=== PATIENT | female | born 1995 | race Caucasian/White ===

== ENCOUNTER 2021-01-06 19:47 | Observation (INO) | payer BC ==
[~2021-01-06] VITALS: Ht 162.6 cm; Wt 91.2 kg
[2021-01-06 20:39] LABS: BASO # 0.1 K/mm3 (0.0-0.2); BASO % 0.5 % (0.0-2.0); EOS # 0.1 K/mm3 (0.0-0.7); EOS % 0.9 % (0-4.0); GRAN # 7.6 K/mm3 (1.4-6.5); HEMOGLOBIN 12.4 g/dl (12.5-16.0); LYMPH % 31.4 % (20.0-51.0); MEAN CELL VOLUME 86 fl (80.0-100.0); MEAN CORPUSCULAR HEMOGLOBIN 30 pg (27.0-31.0); MEAN CORPUSCULAR HGB CONC 35 g/dl (33.0-37.0); MEAN PLATELET VOLUME 9.1 fl (7.4-10.4); MONO # 0.9 K/mm3 (0.1-0.6); MONO % 6.8 % (1.7-9.3); PLATELET COUNT 377 K/mm3 (130-400); RED BLOOD COUNT 4.17 M/mm3 (4.10-5.30); REDCELL DISTRIBUTION WIDTH-CV 12.5 % (11.5-14.5)
[2021-01-06 20:52] LABS: HEMATOCRIT 35.7 % (37.0-47.0)
[2021-01-06 20:58] LABS: ALBUMIN 3.8 gm/dL (3.5-5.0); BILIRUBIN,TOTAL 0.2 mg/dL (0.2-1.2); CALCIUM 10.1 mg/dL (8.4-10.2); CREATININE, serum 0.86 mg/dL (0.57-1.11); POTASSIUM 3.6 mmol/L (3.5-4.5); TOTAL PROTEIN 7.3 gm/dL (6.2-8.1)
--- NOTE | 2021-01-06 23:50 | NUR ---
PT ARRIVES FROM ED PER W/C. IS ALERT AND ORIENTED X4. HAS IV TO LEFT HAND, FLUIDS INFUSING WITHOUT PROBLEM. RATES PAIN 4/10, MILD NAUSEA. ORIENTED TO ROOM AND BED CONTROLS. DENIES NEED FOR PAIN MEDS AT THIS TIME.
[2021-01-06] MEDS ORDERED: TRI ESTARYLLA PO (23:57)
[2021-01-06] MEDS ORDERED: EFFEXOR XR75 MG/CAP PO (23:57)
[2021-01-07] VITALS (15 sets, daily range): BP systolic 99–127; BP diastolic 52–70; PULSE 16–102; TEMP 97.9–98.7
--- NOTE | 2021-01-07 02:09 | NUR ---
PT AWAKE, RATES PAIN 6/10. MEDICATED WITH MORPHINE 2MG IVP AND ZOFRAN 4MG IVP FOR MILD NAUSEA.
--- NOTE | 2021-01-07 05:00 | NUR ---
PT REPORTS PAIN 6/10, MEDICATED WITH MORPHINE 2MG IVP AT THIS TIME.
[2021-01-07 07:14] LABS: BASO % 0.4 % (0.0-2.0); EOS # 0.1 K/mm3 (0.0-0.7); EOS % 0.7 % (0-4.0); GRAN # 6.5 K/mm3 (1.4-6.5); GRAN % 60.7 % (42.2-75.2); HEMOGLOBIN 11.5 g/dl (12.5-16.0); LYMPH # 3.3 K/mm3 (1.2-3.4); MEAN CELL VOLUME 88 fl (80.0-100.0); MEAN CORPUSCULAR HEMOGLOBIN 30 pg (27.0-31.0); MEAN CORPUSCULAR HGB CONC 34 g/dl (33.0-37.0); MEAN PLATELET VOLUME 9.4 fl (7.4-10.4); MONO # 0.8 K/mm3 (0.1-0.6); PLATELET COUNT 314 K/mm3 (130-400); RED BLOOD COUNT 3.88 M/mm3 (4.10-5.30); REDCELL DISTRIBUTION WIDTH-CV 12.7 % (11.5-14.5)
[2021-01-07 07:20] LABS: HEMATOCRIT 34.1 % (37.0-47.0)
[2021-01-07 07:33] LABS: COLLECTION METHOD CLEAN CATCH
--- NOTE | 2021-01-07 08:00 | NUR ---
Patient in bed resting. Alert and oriented x 3. Assessment complete. Patient denies pain at this time. Fluids infusing per orders at this time. Denies further needs at this time.
[2021-01-07 08:03] LABS: MUCOUS Present /lpf; PH 5 (5-8); SQUAMOUS EPITHELIAL 0-2 /hpf; URINE APPEARANCE Clear; URINE BACTERIA None Seen /hpf; URINE BILIRUBIN Negative (NEGATIVE); URINE BLOOD Negative (NEGATIVE); URINE COLOR Straw; URINE GLUCOSE Negative (NEGATIVE); URINE KETONE Negative (NEGATIVE); URINE LEUKOCYTE ESTERASE Negative (NEGATIVE); URINE NITRATE Negative (NEGATIVE); URINE PROTEIN(semi-quant) Negative (NEGATIVE); URINE RBC 0-2 /hpf; URINE UROBILINOGEN Negative (NEGATIVE)
--- NOTE | 2021-01-07 09:15 | NUR ---
Contacted Dr. Kelly, for additional pain medications. Tylenol given for pain / to abdomen. Denies additional needs at this time.
--- NOTE | 2021-01-07 10:30 | NUR ---
Patient complains of nausea, zofran given per orders.
--- NOTE | 2021-01-07 11:05 | NUR ---
Left VM for Dr. Kelly, patient continues complaining of pain. States tylenol did not help
--- NOTE | 2021-01-07 11:22 | NUR ---
Medical Office Representative visited with patient while family was in room. Nothing else needed at this time.
--- NOTE | 2021-01-07 14:09 | NUR ---
Patient called out, states she continues having abdominal pain. Asleep upon entering room. Kpad provided to patient. Denies needs at this time.
--- NOTE | 2021-01-07 15:34 | NUR ---
Plan is to return home with grant Slava . SW met with patient in room about care. Patient shares that her mother is an alternative [phone] Stewart and she obtains medicaitons from [facility] without concerns. Patient concern that she can not eat and is still in pain. Educated on supports with case management. WIll follow.
--- NOTE | 2021-01-07 16:32 | NUR ---
Patient to OR by bed.
--- NOTE | 2021-01-07 19:04 | NUR ---
Patient arrived to room 329 post op at approximately 1805. Doing well post op, VSS and fluids infusing per orders. Lap sites x 3 with edges well approximated. Patient denies pain at this time. Family at bedside. Denies further needs at this time. Will report off to night shift supervisor.
--- NOTE | 2021-01-07 20:15 | NUR ---
PT IN BED. REPORTS GETTING UP AND VOIDING WITHOUT PROBLEM. FIANCE AT BEDSIDE. PT HAS 3 LAP SITES TO ABD WITH BANDAIDS COVERING. REPORTS PAIN 4/10 TO ABD, DENIES NAUSEA. REPORTS EATING MAC/CHEESE FOR DINNER WITHOUT PROBLEM. AMBULATES IN HALLWAY WITH FIANCE AT THIS TIME.
--- NOTE | 2021-01-07 21:46 | NUR ---
MEDICATED WITH ES TYLENOL 1000MG PO FOR ABD DISCOMFORT 07/09.
[2021-01-08 00:58] VITALS: BP 108/68; PULSE 84; TEMP 98.4
[2021-01-08 04:24] VITALS: BP 106/57; PULSE 75; TEMP 97.9
--- NOTE | 2021-01-08 04:50 | NUR ---
PT MEDICATED WITH ES TYLENOL 1000MG PO FOR ABD PAIN 06/08.
--- NOTE | 2021-01-08 07:00 | NUR ---
Report received from COOKIE Rae. Pt. resting in bed and denies needs at this time. Call light and belongings in reach.
[2021-01-08 07:49] VITALS: BP 103/69; PULSE 72; TEMP 98.3
--- NOTE | 2021-01-08 08:50 | NUR ---
Pt. progressing w/ plan of care. Assessment complete and AM meds administered. Pt. inquiring if she is OK to return to work on Saturday 01/13. Pt. reports she is scheduled to work Saturday/Saturday/Saturday. Dr. Kelly called on the telephone. Dr. Kelly reports she is cleared to return to work on Saturday, but if she feels not well enough to return to work she can call his office and get a work note. Plan for discharge this AM, this RN working on pt.'s paperwork at this time.
--- NOTE | 2021-01-08 09:45 | NUR ---
Pt. discharged home. All paperwork provided to patient. Dr. Kelly agreeable w/ pt. alternating tylenol and ibuprofen when she gets home. Pt. agreeable w/ returning to work on Saturday and if she needs to contact Dr. Kelly' office she will. Pt. left floor via foot w/ VANESSA Carrizales.
== END 2021-01-08 09:45 | disposition home or self-care (01) ==
LOC: COL.ER 19:47 → SURG 22:27
PROVIDERS: Student in an Organized Health Care Education/Training Program; ADMIT Surgery
DX: K35.80 Unspecified acute appendicitis (principal)
CPT/HCPCS: G0378; J0690; J1100; J1885; J2270; J2405; J2543; J2704; J3010; J7030; Q9967

== ENCOUNTER 2021-07-01 20:25 | Emergency (ER) | payer OTHER ==
[~2021-07-01] VITALS: Ht 162.6 cm; Wt 90.9 kg
[~2021-07-01 20:25] MED LIST: EFFEXOR XR75 MG/CAP PO; TRI ESTARYLLA PO
[2021-07-01 20:34] VITALS: TEMP 98.6
[2021-07-01 20:51] LABS: COLLECTION METHOD CLEAN CATCH
[2021-07-01 20:57] LABS: BASO # 0.1 K/mm3 (0.0-0.2); BASO % 0.3 % (0.0-2.0); EOS # 0.1 K/mm3 (0.0-0.7); EOS % 0.4 % (0.0-4.0); GRAN # 12.1 K/mm3 (1.4-6.5); GRAN % 74.3 % (42.2-75.2); HEMATOCRIT 40.1 % (37.0-47.0); HEMOGLOBIN 14.3 g/dl (12.5-16.0); LYMPH # 3.2 K/mm3 (1.2-3.4); LYMPH % 19.4 % (20.0-51.0); MEAN CELL VOLUME 83 fl (80.0-100.0); MEAN CORPUSCULAR HEMOGLOBIN 30 pg (27-31); MEAN CORPUSCULAR HGB CONC 36 g/dl (33.0-37.0); MEAN PLATELET VOLUME 9.1 fl (7.4-10.4); MONO # 0.9 K/mm3 (0.1-0.6); MONO % 5.4 % (1.7-9.3); PLATELET COUNT 331 K/mm3 (130-400); RED BLOOD COUNT 4.83 M/mm3 (4.10-5.30); REDCELL DISTRIBUTION WIDTH-CV 12.3 % (11.5-14.5)
[2021-07-01 21:08] LABS: MUCOUS Present (NOT PRESENT); PH 5 (5-8); URINE APPEARANCE Cloudy (CLEAR/HAZY); URINE BACTERIA Rare /hpf (NONE SEEN); URINE BILIRUBIN Negative (NEGATIVE); URINE BLOOD Negative (NEGATIVE); URINE COLOR Amber (YELLOW); URINE GLUCOSE Negative (NEGATIVE); URINE KETONE Trace (NEGATIVE); URINE LEUKOCYTE ESTERASE Negative (NEGATIVE); URINE NITRATE Negative (NEGATIVE); URINE PROTEIN(semi-quant) 1+ (NEGATIVE); URINE RBC 0-2 /hpf (0-2); URINE UROBILINOGEN Negative (NEGATIVE)
[2021-07-01 21:14] LABS: ALBUMIN 4.1 gm/dL (3.5-5.0); BILIRUBIN,TOTAL 0.7 mg/dL (0.2-1.2); C-REACTIVE PROTEIN 1.36 mg/dL (0.00-0.50); CALCIUM 9.8 mg/dL (8.4-10.2); CREATININE, serum 0.77 mg/dL (0.57-1.11); POTASSIUM 3.4 mmol/L (3.5-4.5)
[2021-07-01] MEDS ORDERED: PHENERGAN 25 TA25 MG PO (22:24)
[2021-07-02 00:30] VITALS: BP 121/63; PULSE 74
== END 2021-07-02 00:32 | disposition home or self-care (01) ==
LOC: COL.ER 20:25
PROVIDERS: Family Medicine
DX: O99.611 Diseases of the digestive system complicating pregnancy, first trimester (principal); K52.9 Noninfective gastroenteritis and colitis, unspecified; O99.281 Endocrine, nutritional and metabolic diseases complicating pregnancy, first trimester; E86.0 Dehydration; O99.111 Other diseases of the blood and blood-forming organs and certain disorders involving the immune mechanism complicating pregnancy, first trimester; D72.829 Elevated white blood cell count, unspecified; Z3A.01 Less than 8 weeks gestation of pregnancy
CPT/HCPCS: J2550; J7120